=== PATIENT | female | born 2000 | race Two or more races ===

== ENCOUNTER 2021-12-22 08:21 | Inpatient (IN) | payer OTHER ==
[~2021-12-22] VITALS: Ht 172.7 cm; Wt 61.2 kg
[2021-12-22 10:15] LABS: Basophils # (auto) 0.1 10 ^3/uL (0-0.2); Basophils % (auto) 0.7 % (0.0-2.0); Eosinophils # (auto) 0.1 10 ^3/uL (0-0.8); Eosinophils % (auto) 1.3 % (0.0-7.0); Hematocrit 43.9 % (36.0-46.0); Hemoglobin 15.6 g/dL (12.2-16.2); Lymphocytes # (auto) 1.5 10 ^3/uL (0.4-5.4); Lymphocytes % (auto) 21.3 % (10.0-50.0); Mean Corpuscular Hemoglobin 30.9 pg (28.0-32.0); Mean Corpuscular Hgb Conc. 35.5 g/dL (32.0-36.0); Mean Corpuscular Volume 87.3 fL (80.0-100.0); Monocytes # (auto) 0.5 10 ^3/uL (0-1.3); Monocytes % (auto) 6.6 % (0.0-12.0); Neutrophils % (auto) 70.1 % (37.0-80.0); Red Blood Cells 5.03 10^6/uL (4.0-5.20); Red Cell Distribution Width 12.6 % (11.8-14.3); White Blood Cell 7.2 10^3/uL (4.4-10.8)
[2021-12-22 10:47] LABS: Albumin 4.3 g/dL (3.4-5.0); Calcium 9.2 mg/dL (8.5-10.1); Potassium 4.4 mmol/L (3.5-5.1)
[2021-12-22 10:54] LABS: BUN/Creatinine Ratio 15.9; Bilirubin, Total 0.3 mg/dL (0.2-1.0); Total Protein 7.9 g/dL (6.4-8.2)
[2021-12-22 12:04] LABS: Urine Bacteria NONE SEEN /hpf (None Seen); Urine Blood 1+ /uL (Negative); Urine Specific Gravity 1.015 (1.001-1.035); Urine WBC 13 /hpf (0 - 5)
[2021-12-22] MEDS ORDERED: ALUM & MAG HYDROX-SIMETH LIQ(MAALOX) 30 ML PO ONE (12:15)
[2021-12-22] MEDS ORDERED: FAMOTIDINE 20 MG TAB PO ONE (12:15)
[2021-12-22] MEDS ORDERED: LIDOCAINE VISCOUS 2% 15ML UD PO ONE (12:15)
[2021-12-22] MEDS ORDERED: ONDANSETRON ODT 4 MG TAB PO ONE (12:15)
[2021-12-22] MEDS ORDERED: KETOROLAC TROMETH 30 MG/ML 1ML VIAL IM ONE (17:00)
[2021-12-22] MEDS ORDERED: ASPirin 81 mg TAB PO ONE (17:30)
[2021-12-22] MEDS ORDERED: NITROGLYCERIN 0.4 MG SL TAB SL PRN (19:00)
[2021-12-22] MEDS ORDERED: MORPHINE SULFATE INJECTION 2 MG/ML SYRG IV PRN (19:00)
[2021-12-22] MEDS ORDERED: ONDANSETRON HCL 4 MG/2 ML VIAL IV PRN (19:00)
[2021-12-22] MEDS ORDERED: cefTRIAXone 1GM/50ML D5W 50 ML IV ONE (19:00)
[2021-12-22] MEDS ORDERED: PANTOPRAZOLE 40 MG/10 ML VIAL INJ IV ONE (19:15)
[2021-12-22] MEDS ORDERED: NICOTINE 7MG/24HR TOPICAL PATCH TD ONE (19:15)
[2021-12-22 19:21] LABS: Triglycerides 231 mg/dL (< 150)
[2021-12-22 19:27] LABS: Cholesterol 167 mg/dL (< 200); HDL Cholesterol 60 mg/dL (40-59); LDL Cholesterol 77 mg/dL (< 100)
[2021-12-22 19:40] VITALS: BP 116/77
[2021-12-23] MEDS ORDERED: cefTRIAXone 1GM/50ML D5W 50 ML IV SCH (09:00)
[2021-12-23] MEDS ORDERED: PANTOPRAZOLE 40 MG/10 ML VIAL INJ IV SCH (10:00)
[2021-12-23] MEDS ORDERED: NICOTINE 7MG/24HR TOPICAL PATCH TD SCH (10:00)
== END 2021-12-22 19:48 | disposition left against medical advice (07) | DRG 690 ==
LOC: EDBD 08:21 → ER 08:37 → TELE 18:53
PROVIDERS: ADMIT Registered Nurse; ATTEND Registered Nurse
DX: N39.0 Urinary tract infection, site not specified (principal); F43.10 Post-traumatic stress disorder, unspecified; F17.210 Nicotine dependence, cigarettes, uncomplicated; R10.13 Epigastric pain; R07.9 Chest pain, unspecified; Z53.29 Procedure and treatment not carried out because of patient's decision for other reasons; Z20.822 Contact with and (suspected) exposure to COVID-19
CPT/HCPCS: 36415; 76705; 80053; 80061; 81001; 81025; 82962; 84484; 85025; 85379; 87086; 96365; 96372; G0378; J0696; J1885; Q0162

== ENCOUNTER 2022-01-06 07:33 | Emergency (ER) | payer OTHER ==
[~2022-01-06] VITALS: Ht 170.2 cm; Wt 61.2 kg
[2022-01-06 07:44] VITALS: BP 117/69
[2022-01-06] MEDS ORDERED: OXYMETAZOLINE HCL 0.05 % NASAL SPRAY 15ML EACHNOSTRI ONE (09:30)
[2022-01-06 10:00] LABS: Basophils # (auto) 0 10 ^3/uL (0-0.2); Basophils % (auto) 0.6 % (0.0-2.0); Eosinophils # (auto) 0 10 ^3/uL (0-0.8); Eosinophils % (auto) 0.8 % (0.0-7.0); Hematocrit 41.8 % (36.0-46.0); Hemoglobin 14.7 g/dL (12.2-16.2); Lymphocytes # (auto) 2.1 10 ^3/uL (0.4-5.4); Lymphocytes % (auto) 32.1 % (10.0-50.0); Mean Corpuscular Hemoglobin 30.7 pg (28.0-32.0); Mean Corpuscular Hgb Conc. 35.2 g/dL (32.0-36.0); Monocytes # (auto) 0.4 10 ^3/uL (0-1.3); Monocytes % (auto) 6.7 % (0.0-12.0); Neutrophils # (auto) 3.9 10 ^3/uL (1.6-8.6); Neutrophils % (auto) 59.8 % (37.0-80.0); Red Blood Cells 4.81 10^6/uL (4.0-5.20); Red Cell Distribution Width 12.6 % (11.8-14.3); White Blood Cell 6.6 10^3/uL (4.4-10.8)
== END 2022-01-06 10:20 | disposition home or self-care (01) ==
LOC: EDBD 07:33 → ER 07:33
DX: R04.0 Epistaxis (principal)
CPT/HCPCS: 36415; 85025

== ENCOUNTER 2022-04-03 02:58 | Emergency (ER) | payer OTHER ==
[~2022-04-03] VITALS: Ht 170.2 cm; Wt 36.6 kg
[2022-04-03 03:39] VITALS: BP 111/72
== END 2022-04-03 06:10 | disposition home or self-care (01) ==
LOC: ER 02:58 → EDUNIT# 02:58 → EDBD 02:58 → ER 05:48
DX: G25.3 Myoclonus (principal)
CPT/HCPCS: 93005

== ENCOUNTER 2022-07-03 00:48 | Emergency (ER) | payer OTHER ==
[~2022-07-03] VITALS: Ht 157.5 cm; Wt 70.0 kg
[2022-07-03 01:10] VITALS: BP 121/87
== END 2022-07-03 01:37 | disposition left against medical advice (07) ==
LOC: EDBD 00:48 → ER 00:55
DX: R56.9 Unspecified convulsions (principal); Z53.29 Procedure and treatment not carried out because of patient's decision for other reasons

== ENCOUNTER 2023-12-20 06:22 | Emergency (ER) | payer OTHER ==
[~2023-12-20] VITALS: Ht 170.2 cm; Wt 60.0 kg
[2023-12-20 06:57] VITALS: BP 146/79; RESP 20; O2SAT 99
[2023-12-20] MEDS ORDERED: POTASSIUM EFFERVESENT TAB 25 MEQ PO ONE (07:00)
[2023-12-20] MEDS ORDERED: KETOROLAC TROMETH 60MG/2ML VIAL IM ONE (07:00)
[2023-12-20 07:01] VITALS: PULSE 108
[2023-12-20 07:01] LABS: Basophils # (auto) 0.1 10 ^3/uL (0-0.2); Basophils % (auto) 0.9 % (0.0-2.0); Eosinophils # (auto) 0.1 10 ^3/uL (0-0.8); Eosinophils % (auto) 1.8 % (0.0-7.0); Hematocrit 41.8 % (36.0-46.0); Hemoglobin 14.3 g/dL (12.2-16.2); Lymphocytes # (auto) 2.3 10 ^3/uL (0.4-5.4); Lymphocytes % (auto) 30.9 % (10.0-50.0); Mean Corpuscular Hemoglobin 30.8 pg (28.0-32.0); Mean Corpuscular Hgb Conc. 34.2 g/dL (32.0-36.0); Monocytes # (auto) 0.5 10 ^3/uL (0-1.3); Monocytes % (auto) 6.2 % (0.0-12.0); Neutrophils # (auto) 4.5 10 ^3/uL (1.6-8.6); Neutrophils % (auto) 60.2 % (37.0-80.0); Nucleated Red Blood Cells % 0.2 %; Red Blood Cells 4.65 10^6/uL (4.0-5.20); Red Cell Distribution Width 12.3 % (11.8-14.3); White Blood Cell 7.5 10^3/uL (4.4-10.8)
[2023-12-20 07:19] LABS: Alanine Aminotransferase 12 U/L (7-40); Albumin 4.6 g/dL (3.2-4.8); Alkaline Phosphatase 94 U/L (46-116); Anion Gap 13 (5-15); Aspartate Aminotransferase 16 U/L (13-40); Bilirubin, Total 0.3 mg/dL (0.2-1.0); Calcium 9.1 mg/dL (8.7-10.4); Carbon Dioxide 19 mmol/L (20-30); Chloride 104 mmol/L (98-107); Glucose 91 mg/dL (74-106); Magnesium 2.1 mg/dL (1.6-2.6); Potassium 3.3 mmol/L (3.5-5.1); Sodium 136 mmol/L (136-145); Total Protein 7.3 g/dL (5.7-8.2)
[2023-12-20 07:22] LABS: BUN/Creatinine Ratio 6.8 (10.0-20.0); Blood Urea Nitrogen < 5 mg/dL (9-23)
[2023-12-20] MEDS: SODIUM CHLORIDE 0.9% 1,000 ML IV ONE (08:25)
[2023-12-20] MEDS: hydrOXYzine 25 MG TAB or CAP PO ONE (08:30)
[2023-12-20] MEDS: LORazepam 2MG/ML-1ML VIAL IV ONE (08:30)
[2023-12-20 18:29] LABS: Urine Bacteria FEW /hpf (None Seen); Urine Blood Negative /uL (Negative); Urine Clarity Clear (Clear); Urine Color Colorless (Yellow); Urine Protein, UAD Negative (Negative); Urine Specific Gravity 1.003 (1.001-1.035); Urine Urobilinogen Normal (Negative); Urine WBC 2 /hpf (0 - 5)
[2023-12-20 18:31] LABS: Amphetamine Screen, Urine Neg (NEGATIVE); Barbiturate Scree,Urine Neg (NEGATIVE); Benzodiazephine Screen, Urine Neg (NEGATIVE); Cannabinoid Screen, Urine Neg (NEGATIVE); Cocaine Screen, Urine Neg (NEGATIVE); Opiate Scree,Urine Neg (NEGATIVE); Phencyclidine Screen, Urine Neg (NEGATIVE)
== END 2023-12-20 21:06 | disposition left against medical advice (07) ==
LOC: EDBD 06:22 → ER 06:22 → EDUNIT# 06:22 → ER 20:00
DX: S09.8XXA Other specified injuries of head, initial encounter (principal); R10.2 Pelvic and perineal pain; G40.909 Epilepsy, unspecified, not intractable, without status epilepticus; F32.A Depression, unspecified; E87.6 Hypokalemia; Z85.9 Personal history of malignant neoplasm, unspecified; Y04.2XXA Assault by strike against or bumped into by another person, initial encounter; Y93.89 Activity, other specified; Y92.89 Other specified places as the place of occurrence of the external cause; Y99.8 Other external cause status
CPT/HCPCS: 36415; 70450; 80053; 80307; 81001; 83735; 84702; 85025; 93005; 96361; 96374; 99285; J2060; J7030

== ENCOUNTER 2024-01-03 08:05 | Emergency (ER) | payer OTHER ==
[~2024-01-03] VITALS: Ht 175.3 cm; Wt 65.9 kg
[2024-01-03] MEDS: LORazepam 0.5 MG TAB PO ONE (08:30)
[2024-01-03] MEDS: LORazepam 2MG/ML-1ML VIAL ONE (08:54)
[2024-01-03] MEDS: LORazepam 2MG/ML-1ML VIAL IV ONE (08:54)
[2024-01-03 11:00] VITALS: PULSE 110; RESP 16; O2SAT 98
[2024-01-03 11:00] LABS: Urine Bacteria FEW /hpf (None Seen); Urine Blood Negative /uL (Negative); Urine Budding Yeast OCCASIONAL /hpf (None Seen); Urine Clarity Clear (Clear); Urine Protein, UAD Negative (Negative); Urine Specific Gravity 1.004 (1.001-1.035); Urine Urobilinogen Normal (Negative); Urine WBC 1 /hpf (0 - 5)
[2024-01-03 11:09] LABS: Urine Color STRAW (Yellow)
[2024-01-03 11:11] LABS: Amphetamine Screen, Urine Neg (NEGATIVE); Barbiturate Scree,Urine Neg (NEGATIVE); Benzodiazephine Screen, Urine Neg (NEGATIVE); Cocaine Screen, Urine Neg (NEGATIVE)
[2024-01-03 11:12] LABS: Cannabinoid Screen, Urine Neg (NEGATIVE); Opiate Scree,Urine Neg (NEGATIVE); Phencyclidine Screen, Urine Neg (NEGATIVE)
[2024-01-03 17:53] VITALS: BP 114/58; PULSE 110; RESP 16; O2SAT 97
== END 2024-01-03 18:04 | disposition home or self-care (01) ==
LOC: ER 08:05 → EDBD 08:05 → ER 17:56
DX: F29 Unspecified psychosis not due to a substance or known physiological condition (principal)
CPT/HCPCS: 80307; 81001; 96374; 99283; J2060

== ENCOUNTER 2024-04-15 22:32 | Emergency (ER) | payer OTHER ==
[~2024-04-15] VITALS: Ht 175.3 cm; Wt 63.6 kg
[2024-04-15 23:48] LABS: Basophils # (auto) 0 10 ^3/uL (0-0.2); Basophils % (auto) 0.5 % (0.0-2.0); Eosinophils # (auto) 0.1 10 ^3/uL (0-0.8); Eosinophils % (auto) 1.3 % (0.0-7.0); Hematocrit 42.7 % (36.0-46.0); Hemoglobin 15.1 g/dL (12.2-16.2); Lymphocytes # (auto) 1.2 10 ^3/uL (0.4-5.4); Lymphocytes % (auto) 20.1 % (10.0-50.0); Mean Corpuscular Hemoglobin 31.3 pg (28.0-32.0); Mean Corpuscular Hgb Conc. 35.4 g/dL (32.0-36.0); Mean Corpuscular Volume 88.4 fL (80.0-100.0); Monocytes # (auto) 0.5 10 ^3/uL (0-1.3); Monocytes % (auto) 8.5 % (0.0-12.0); Neutrophils # (auto) 4.2 10 ^3/uL (1.6-8.6); Neutrophils % (auto) 69.6 % (37.0-80.0); Nucleated Red Blood Cells % 0.1 %; Platelet Count (auto) 364 10^3/uL (140-450); Red Blood Cells 4.83 10^6/uL (4.0-5.20); Red Cell Distribution Width 12.1 % (11.8-14.3); White Blood Cell 6.1 10^3/uL (4.4-10.8)
[2024-04-16 00:06] LABS: Alanine Aminotransferase 11 U/L (7-40); Alkaline Phosphatase 91 U/L (46-116); Anion Gap 6 (5-15); Aspartate Aminotransferase 15 U/L (13-40); BUN/Creatinine Ratio 7.5 (10.0-20.0); Blood Urea Nitrogen 6 mg/dL (9-23); Calcium 9.7 mg/dL (8.7-10.4); Carbon Dioxide 25 mmol/L (20-30); Chloride 109 mmol/L (98-107); Glucose 100 mg/dL (74-106); Potassium 3.8 mmol/L (3.5-5.1); Sodium 140 mmol/L (136-145)
[2024-04-16 00:07] LABS: Bilirubin, Total 0.6 mg/dL (0.2-1.0); Total Protein 7.6 g/dL (5.7-8.2)
[2024-04-16 01:15] VITALS: BP 123/75; RESP 18; TEMP 98.1; O2SAT 99
[2024-04-16] MEDS: SODIUM CHLORIDE 0.9% 1,000 ML IV ONE (01:25)
[2024-04-16 01:39] VITALS: PULSE 102
[2024-04-16 02:08] LABS: Urine Bacteria None Seen /hpf (None Seen)
[2024-04-16 02:27] LABS: Urine Blood Negative /uL (Negative); Urine Clarity Clear (Clear); Urine Color Light-Yellow (Yellow); Urine Protein, UAD TRACE (Negative); Urine Urobilinogen Normal (Negative); Urine WBC 7 /hpf (0 - 5)
[2024-04-16 02:30] LABS: Amphetamine Screen, Urine Neg (NEGATIVE); Barbiturate Scree,Urine Neg (NEGATIVE); Benzodiazephine Screen, Urine Neg (NEGATIVE); Cocaine Screen, Urine Neg (NEGATIVE); Opiate Scree,Urine Neg (NEGATIVE)
[2024-04-16 02:31] LABS: Cannabinoid Screen, Urine Neg (NEGATIVE); Phencyclidine Screen, Urine Neg (NEGATIVE)
[2024-04-16] MEDS: KETOROLAC TROMETH 30 MG/ML 1ML VIAL IV ONE (02:46)
== END 2024-04-16 02:54 | disposition home or self-care (01) ==
LOC: EDBD 22:32 → ER 22:32
DX: R55 Syncope and collapse (principal); R10.2 Pelvic and perineal pain
CPT/HCPCS: 36415; 70450; 80053; 80307; 81001; 81025; 83605; 84484; 84702; 85025; 93005; 96361; 96374; 99285; J1885; J7030

== ENCOUNTER 2024-04-18 05:48 | Emergency (ER) | payer OTHER ==
[~2024-04-18] VITALS: Ht 165.1 cm; Wt 63.5 kg
[2024-04-18 06:20] VITALS: TEMP 97.7
[2024-04-18] MEDS: levETIRAcetam 1000 mg/100ml 100 ML IV ONE (06:52)
[2024-04-18 07:01] LABS: Basophils # (auto) 0 10 ^3/uL (0-0.2); Basophils % (auto) 0.3 % (0.0-2.0); Eosinophils # (auto) 0 10 ^3/uL (0-0.8); Eosinophils % (auto) 0.1 % (0.0-7.0); Hematocrit 41.5 % (36.0-46.0); Hemoglobin 14.8 g/dL (12.2-16.2); Lymphocytes # (auto) 0.8 10 ^3/uL (0.4-5.4); Lymphocytes % (auto) 11.9 % (10.0-50.0); Mean Corpuscular Hemoglobin 31.3 pg (28.0-32.0); Mean Corpuscular Hgb Conc. 35.6 g/dL (32.0-36.0); Monocytes # (auto) 0.2 10 ^3/uL (0-1.3); Monocytes % (auto) 2.9 % (0.0-12.0); Neutrophils # (auto) 5.6 10 ^3/uL (1.6-8.6); Neutrophils % (auto) 84.8 % (37.0-80.0); Nucleated Red Blood Cells % 0.1 %; Platelet Count (auto) 342 10^3/uL (140-450); Red Blood Cells 4.72 10^6/uL (4.0-5.20); Red Cell Distribution Width 12.3 % (11.8-14.3); White Blood Cell 6.6 10^3/uL (4.4-10.8)
[2024-04-18 07:23] LABS: Anion Gap 12 (5-15); Carbon Dioxide 22 mmol/L (20-30); Chloride 106 mmol/L (98-107); Potassium 3.7 mmol/L (3.5-5.1); Sodium 140 mmol/L (136-145)
[2024-04-18 07:24] LABS: Calcium 9.4 mg/dL (8.7-10.4)
[2024-04-18 07:29] LABS: BUN/Creatinine Ratio 6.8 (10.0-20.0); Blood Alcohol 186.7 mg/dL (<10); Blood Urea Nitrogen 5 mg/dL (9-23); Glucose 94 mg/dL (74-106)
[2024-04-18 10:00] VITALS: PULSE 121; RESP 21; O2SAT 95
[2024-04-18 10:46] VITALS: BP 107/49; PULSE 121; RESP 21; O2SAT 95
[2024-04-18 12:26] LABS: Amphetamine Screen, Urine Neg (NEGATIVE); Barbiturate Scree,Urine Neg (NEGATIVE); Benzodiazephine Screen, Urine Neg (NEGATIVE); Cannabinoid Screen, Urine Neg (NEGATIVE); Cocaine Screen, Urine Neg (NEGATIVE); Opiate Scree,Urine Neg (NEGATIVE); Phencyclidine Screen, Urine Neg (NEGATIVE)
== END 2024-04-18 11:44 | disposition left against medical advice (07) ==
LOC: EDBD 05:48 → ER 05:48
DX: R56.9 Unspecified convulsions (principal); R10.2 Pelvic and perineal pain; F10.129 Alcohol abuse with intoxication, unspecified; F10.10 Alcohol abuse, uncomplicated; Z98.890 Other specified postprocedural states
CPT/HCPCS: 36415; 70450; 80048; 80307; 80320; 84702; 85025; 93005; 96365; 99285; J1953